=== PATIENT | male | born 2000 | race Caucasian/White ===

== ENCOUNTER 2020-07-21 08:25 | Emergency (ER) | payer OTHER ==
[~2020-07-21] VITALS: Ht 190.5 cm; Wt 90.9 kg
[2020-07-21 08:26] VITALS: BP 117/70
[2020-07-21] MEDS ORDERED: IBUPROFEN 600MG TAB PO ONE (08:45)
== END 2020-07-21 09:14 | disposition home or self-care (01) ==
LOC: M ED 08:25
DX: S83.411A Sprain of medial collateral ligament of right knee, initial encounter (principal); X50.0XXA Overexertion from strenuous movement or load, initial encounter; Y92.410 Unspecified street and highway as the place of occurrence of the external cause; Y93.02 Activity, running; Y99.9 Unspecified external cause status